=== PATIENT | male | born 1960 | race Hispanic/Latino ===

== ENCOUNTER 2021-10-30 12:45 | Outpatient (CLI) | payer BC | END 2021-10-30 12:46 | disposition home or self-care (01) | PROVIDERS: ATTEND Family Medicine | DX: R42 Dizziness and giddiness (principal); R00.1 Bradycardia, unspecified | CPT/HCPCS: 93225; 93226 ==

== ENCOUNTER 2021-11-01 13:47 | Outpatient (CLI) | payer OTHER | END 2021-11-01 13:48 | disposition home or self-care (01) | LOC: BICCT 13:47 | PROVIDERS: ATTEND Family Medicine | DX: Z13.6 Encounter for screening for cardiovascular disorders (principal); R42 Dizziness and giddiness; R00.1 Bradycardia, unspecified; I25.10 Atherosclerotic heart disease of native coronary artery without angina pectoris | CPT/HCPCS: 75571 ==

== ENCOUNTER 2023-04-12 20:49 | Outpatient (CLI) | payer BC | END 2023-04-12 20:50 | disposition home or self-care (01) | LOC: RAD 20:49 | PROVIDERS: ATTEND Family Medicine | DX: I88.9 Nonspecific lymphadenitis, unspecified (principal) | CPT/HCPCS: 70220 ==